=== PATIENT | male | born 1965 | race Caucasian/White ===

== ENCOUNTER → 2023-09-27 15:02 | Outpatient (CLI) | payer OTHER, SELFPAY ==
--- NOTE | 2023-09-27 | DI.NM.S_ITS ---
PROCEDURE: NM EXERCISE TREADMILL NON NUC COMPARISON: None. INDICATIONS: Other forms of dyspnea FINDINGS: The patient exercised for 7 minutes and 13 seconds reaching 95% of maximum predicted heart rate. 8.1 METs, RUTH +17% achieved. Appropriate BP response to exercise. No angina and no ST changes during exercise or recovery. Frequent PVCs during exercise. IMPRESSION: Low risk, normal treadmill ECG only stress test from inducible ischemia standpoint with mildly reduced exercise tolerance (RUTH +17%). Frequent PVCs during exercise. Dictated by: Renato Funk MD on 09/27/2023 at 16:38 Approved by: Renato Funk MD on 09/27/2023 at 16:40
== END ==
PROVIDERS: PCP Student in an Organized Health Care Education/Training Program; Referring Provider Student in an Organized Health Care Education/Training Program; Visit Provider Student in an Organized Health Care Education/Training Program
DX: R06.09 Other forms of dyspnea (principal); R07.89 Other chest pain
CPT/HCPCS: 93017